=== PATIENT | female | born 2000 | race Caucasian/White ===

== ENCOUNTER 2020-01-26 18:12 | Emergency (ER) | payer MEDICAID ==
[2020-01-26 18:21] VITALS: BP 144/86
--- NOTE | 2020-01-26 19:03 | ER Document Report ---
ED General - General Chief Complaint: Neck Pain >24hrs old Stated Complaint: LUMP ON NECK,RIGHT EYE PAIN/VISION LOSS Time Seen by Provider: 01/26/20 18:55 Primary Care Provider: [facility] [Provider Group] - Follow up as needed ARTHUR DE LA FUENTE DO [ACTIVE STAFF] - Follow up as needed KAMILLE BUSH MD [ACTIVE STAFF] - Follow up as needed Mode of Arrival: Ambulatory Information source: Patient Notes: 19-year-old very morbidly obese female presented to ED for complaint of lymphadenopathy to the posterior right neck. She states she has have intermittent ear pain to the right side and she is also states she is having some changes in her vision. She has not been to an php website developer recently. She states she was recently tested for diabetes and was negative. Spoke with patient concerning her ear. There is no acute otitis media at this time. Plan lymph node is nowhere near the ear or the periauricular lymph nodes. The lymph node is not related to her vision changes. I have recommended that she follow-up with the php website developer. I have also will give her the name and number of a general surgeon to evaluate the lymphadenopathy to the posterior neck. There is no obvious injuries or infections noted at this time. Constitutional: Negative for fever. HENT: Lymphadenopathy posterior neck, no otitis externa or otitis media to the right side. Eyes: Patient states she has been having vision changes for the last 3 days. Cardiovascular: Negative for chest pain. Respiratory: Negative for shortness of breath. Gastrointestinal: Negative for abdominal pain, vomiting or diarrhea. Genitourinary: Negative for dysuria. Musculoskeletal: Negative for back pain. Skin: Negative for rash. Neurological: Negative for headaches, weakness or numbness. 10 point ROS negative except as marked above and in HPI. VITAL SIGNS: Within normal limits. GENERAL: Very morbidly obese at 153.5 kg and 5 foot 5, no acute distress, non- toxic appearance. HEAD: Normal with no signs of head trauma. EYES: PERRLA, EOMI, conjunctiva normal, no discharge. EARS: Hearing grossly intact. NOSE: Normal. THROAT: Oropharynx is normal. NECK: 1 enlarged lymph node to the posterior neck tender to palpation. Normal range of motion, no tenderness, supple, No adenopathy, no JVD. CHEST: Clear breath sounds bilaterally. No wheezes, rales, or rhonchi. CARDIAC: Regular rate and rhythm. S1 and S2, without murmurs, gallops, or rubs. VASCULAR: No Edema. Peripheral pulses normal and equal in all extremities. ABDOMEN: Normal and soft with no tenderness, no masses or pulsatile masses. GASTROINTESTINAL: Bowel sounds normal GENITOURINARY: Normal, No tenderness LYMPATHTIC: No lymphadenopathy noted. MUSCULOSKELETAL: Good range of motion of all major joints. Extremities without clubbing, cyanosis or edema. NEUROLOGICAL: Alert and oriented x 3. No focal sensory or strength deficits. Speech normal. Follows commands appropriately. PSYCHIATRIC: Normal Affect, judgement and mood. SKIN: Normal appearance with no rashes or lesions. - HPI Onset: Other - Vision changes last 3 days, lymphadenopathy for about 6 months more tender the last 3 days. Onset/Duration: Intermittent Quality of pain: Achy, Pressure Pain Level: 2 Associated symptoms: Other - Vision changes the last 3 days, lymphadenopathy more pain for the last 3 days Exacerbated by: Denies Relieved by: Denies Similar symptoms previously: Yes Recently seen / treated by doctor: No - Related Data Allergies/Adverse Reactions: No Known Allergies Allergy (Verified 01/26/20 19:24) Past Medical History - General Information source: Patient - Social History Smoking Status: Never Smoker Frequency of alcohol use: None Drug Abuse: None Lives with: Family Family History: Reviewed & Not Pertinent Patient has suicidal ideation: No Patient has homicidal ideation: No - Past Medical History Cardiac Medical History: Reports: None Pulmonary Medical History: Reports: Hx Asthma EENT Medical History: Reports: None Neurological Medical History: Reports: None Endocrine Medical History: Reports: None Renal/ Medical History: Reports: None Malignancy Medical History: Reports: None GI Medical History: Reports: None Musculoskeletal Medical History: Reports None Skin Medical History: Reports None Psychiatric Medical History: Reports: None Traumatic Medical History: Reports: None Infectious Medical History: Reports: None Past Surgical History: Reports: Hx Section Physical Exam - Vital signs Vitals: Temp Pulse Resp BP Pulse Ox 98.2 F 102 H 16 144/86 H 100 01/26/20 18:20 01/26/20 18:20 01/26/20 18:20 01/26/20 18:20 01/26/20 18:20 Course - Re-evaluation Re-evalutation: 01/26/20 19:20 Discussed follow-up with surgeon, ENT, and php website developer for her complaints. She has had the lymphadenopathy for about 6 months but states it became painful 3 days ago. She states the vision changes up and over the last several days and the ear pain is gone for several days. There is no acute ear infections noted. I did give her the name of a php website developer, ears nose and throat and general surgeon for biopsy of the lymph node if it continues to bother her. Patient was able to verbalize understanding agreement with this treatment plan the patient was discharged home. - Vital Signs Vital signs: Temp Pulse Resp BP Pulse Ox 98.2 F 102 H 16 144/86 H 100 01/26/20 18:20 01/26/20 18:20 01/26/20 18:20 01/26/20 18:20 01/26/20 18:20 Discharge - Discharge Clinical Impression: lymphadenopathy right posterior neck, Ear pain, right Disposition: HOME, SELF-CARE Additional Instructions: Lymphadenopathy right posterior neck You have enlargement of lymph glands, called lymphadenopathy. Lymph glands filter tissue fluids. They help to fight infection. Most of the time, enlarged lymph glands are not serious. Lymph glands may react to a viral or bacterial infection by becoming swollen and painful. When the infection goes away, the glands shrink. Sometimes a lymph gland will remain enlarged for a long time after an infection. Occasionally, a lymph gland may be overwhelmed by infection and form an abscess. If an enlarged lymph gland has signs that are suspicious for tumor, the doctor will recommend a biopsy. A suspicious gland usually is NOT painful, grows very slowly, and is rock-hard to touch. See the doctor or return if there is increasing swelling and redness, high fever, difficulty breathing, or any other change for the worse. You were seen today for ear pain to the right ear. There is no acute infections at this time. Use Tylenol or Motrin as needed for your discomfort. I have given you the name and number of a ears nose and throat specialist she can follow-up of this pain continues. You stated you have had decreased vision in your right eye. Please follow-up with an php website developer tomorrow to see why you are having changes in your right eye. I have given you the name and number of an php website developer. Acetaminophen Acetaminophen may be taken for pain relief or fever control. It's much safer than aspirin, offering a wider range of "safe" dosages. It is safe during . Some brand names are Tylenol, Panadol, Datril, Anacin 3, Tempra, and Liquiprin. Acetaminophen can be repeated every four hours. The following are maximum recommended dosages: WEIGHT Dose Drops Elixir Chewable(80mg) (LBS.) drprs=droppers tsp=teaspoon 6 40 mg .4 ml (1/2) 6-11 80 mg .8 ml (full) 1/2 tsp 1 tab 12-16 120 mg 1 1/2 drprs 3/4 tsp 1 1/2 tabs 17-23 160 mg 2 drprs 1 tsp 2 tabs 24-30 240 mg 3 drprs 1 1/2 tsp 3 tabs 30-35 320 mg 2 tsp 4 tabs 36-41 360 mg 2 1/4 tsp 4 1/2 tabs 42-47 400 mg 2 1/2 tsp 5 tabs 48-53 480 mg 3 tsp 6 tabs 54-59 520 mg 3 1/4 tsp 6 1/2 tabs 60-64 560 mg 3 1/2 tsp 7 tabs 65-70 600 mg 3 3/4 tsp 7 1/2 tabs 71-76 640 mg 4 tsp 8 tabs 77-82 720 mg 4 1/2 tsp 9 tabs 83-88 800 mg 5 tsp 10 tabs >89 pounds or adults 650 mg to 900 mg Acetaminophen can be repeated every four hours. Maximum daily dose not to exceed 4000 mg. These maximum recommended dosages are slightly higher than the dosages written on the product container, but these dosages are very safe and well below the toxic dosage for acetaminophen. Ibuprofen Ibuprofen is an excellent, safe drug for pain control. In addition, it has potent antiinflammatory effects which are beneficial, especially in the treatment of injuries, arthritis, or tendonitis. It's best to take ibuprofen with food. Persons with ulcer disease or allergy to aspirin should notify their physician of this before taking ibuprofen. Take the medication exactly as prescribed. Don't take additional doses unless instructed to do so by your doctor. If you develop wheezing, shortness of breath, hives, faintness, stomach pain, vomiting, or dark black stools, return for re-evaluation at once. FOLLOW-UP CARE: If you have been referred to a physician for follow-up care, call the physicians office for an appointment as you were instructed or within the next two days. If you experience worsening or a significant change in your symptoms, notify the physician immediately or return to the Emergency Department at any time for re-evaluation. Forms: Elevated Blood Pressure Referrals: ARTHUR DE LA FUENTE DO [ACTIVE STAFF] - Follow up as needed KAMILLE BUSH MD [ACTIVE STAFF] - Follow up as needed [facility] [Provider Group] - Follow up as needed
== END 2020-01-26 19:25 | disposition home or self-care (01) ==
LOC: ER 18:12
DX: R59.0 Localized enlarged lymph nodes (principal); H92.01 Otalgia, right ear; H53.9 Unspecified visual disturbance; E66.01 Morbid (severe) obesity due to excess calories; J45.909 Unspecified asthma, uncomplicated
CPT/HCPCS: 99284